=== PATIENT | female | born 1995 | race Caucasian/White ===

== ENCOUNTER 2017-06-10 14:20 | Emergency (ER) | payer OTHER ==
[~2017-06-10] VITALS: Wt 76.0 kg
[2017-06-10] MEDS ORDERED: ACETAMINOPHEN 325 MG TAB PO STA (14:54)
[2017-06-10 15:05] LABS: URINE BLOOD (Dip) POC 3+ (NEGATIVE)
[2017-06-10 15:23] LABS: BASOPHILS % 0.4 % (0.0-2.0); EOSINOPHILS # 0.2 10^3/ul (0.0-0.5); EOSINOPHILS % 1.6 % (0.0-7.0); HEMATOCRIT 41.2 % (37.0-47.0); HEMOGLOBIN 13.6 g/dl (12.0-16.0); LYMPHOCYTES # 2.6 10^3/ul (0.8-2.9); LYMPHOCYTES % 27.8 % (18.0-55.0); MEAN CORPUSCULAR HEMOGLOBIN 30.6 pg (29.0-33.0); MEAN CORPUSCULAR VOLUME 92.6 fl (72.0-104.0); MEAN PLATELET VOLUME 10.2 fl (7.4-10.4); MONOCYTE # 0.6 10^3/ul (0.3-0.9); MONOCYTES % 6.2 % (0.0-13.0); NEUTROPHILS % 63.8 % (30.0-74.0); PLATELET COUNT 209 10^3/UL (140-415); RED BLOOD COUNT 4.45 10^6/ul (4.20-5.40); RED CELL DISTRIBUTION WIDTH 12.4 % (11.5-14.5); WHITE BLOOD COUNT 9.4 10^3/ul (4.8-10.8)
--- NOTE | 2017-06-10 15:51 | RADRPT ---
PROCEDURE: US Obstetric less than 14 weeks. CLINICAL INDICATION: , vaginal bleeding TECHNIQUE: Transabdominal and transvaginal imaging of the pelvis was performed. Images are review ed on a high-resolution PACS workstation. COMPARISON: None available FINDINGS: Irregularly shaped intrauterine gestational sac is identified in the lower uterine segment. Mean sac diameter is 19.2 mm, corresponding to 6 weeks 5 days gestational age. No pole or cardiac activity is identified. Subchorionic hemorrhage is noted, measuring 22 x 14 mm. Nonspecific trace amount of pelvic free fluid is present. Left ovary demonstrates a 16 mm dominant follicle. Right ovary is unremarkable. IMPRESSION: 1. Irregularly shaped intrauterine gestational sac is identified in the lower uterine segment. No f etal pole or cardiac activity is identified. Findings are concerning for failed early and in progress. Continued sonographic follow-up is recommended. 2. Mild subchorionic hemorrhage is noted. 3. Left ovary demonstrates a 16 mm dominant follicle. 4. No evidence of ectopic gestation is seen. RPTAT: AAQQ .Delfin Palmer MD, Date Time Electronically viewed and signed by .Delfin Palmer MD, on 06/10/2017 15:51 .R/
[2017-06-10] MEDS ORDERED: NITR-58 PO (16:03)
--- NOTE | 2017-06-10 16:11 | ERD ---
ER Documentation Chief Complaint Date/Time DATE: 06/10/17 TIME: 16:07 Chief Complaint vag bleeding, pt 4 months pg, , denies pain HPI This is a 21-year-old female presenting to emerge department for vaginal bleeding while . Patient states her last menstrual period was March and patient believes she is about 4 weeks . She is a A0. States she is having pelvic cramping. Unable to rate pain. Patient states she took a urine test at home which was positive and went to [facility] 4 days ago and lab work and ultrasound was done. Patient states ultrasound was inconclusive according to her doctor. Patient states she is having moderate bleeding and states "it is like my period." Patient states she is having multiple moderate sized blood clots. No passage of tissue. No dysuria or hematuria. No fevers or chills. No nausea or vomiting. ROS All systems reviewed and are negative except as per history of present illness. Medications Home Meds Active Scripts Nitrofurantoin Monohyd Macrocr (Macrobid) 100 Mg Capsr, 100 MG PO BID, #10 CAP Prov:VANDANA MACHADO NP 06/10/17 Allergies Allergies: Coded Allergies: No Known Allergy (Unverified , 06/10/17) PMhx/Soc Medical and Surgical Hx: pt denies Medical Hx, pt denies Surgical Hx Hx Alcohol Use: No Hx Substance Use: No Hx Tobacco Use: No Smoking Status: Never smoker Physical Exam Vitals Vital Signs Date Time Temp Pulse Resp B/P Pulse Ox O2 Delivery O2 Flow Rate FiO2 06/10/17 14:23 98.5 67 17 118/59 98 Physical Exam Const: No acute distress, alert Head: Atraumatic Eyes: Normal Conjunctiva ENT: Normal External Ears, Nose and Mouth. Neck: Full range of motion..~ No meningismus. Resp: Clear to auscultation bilaterally Cardio: Regular rate and rhythm, no murmurs Abd: Soft, non tender, non distended. Normal bowel sounds Skin: No petechiae or rashes Back: No midline or flank tenderness Ext: No cyanosis, or edema Neur: Awake and alert Psych: Normal Mood and Affect Result Diagram: 06/10/17 1505 Results 24 hrs Laboratory Tests Test 06/10/17 15:04 06/10/17 15:05 Bedside Urine pH (LAB) 5.0 Bedside Urine Protein (LAB) 2+ Bedside Urine Glucose (UA) Negative Bedside Urine Ketones (LAB) Negative Bedside Urine Blood 3+ Bedside Urine Nitrite (LAB) Negative Bedside Urine Leukocyte Esterase (L 1+ White Blood Count 9.410^3/ul Red Blood Count 4.4510^6/ul Hemoglobin 13.6g/dl Hematocrit 41.2% Mean Corpuscular Volume 92.6fl Mean Corpuscular Hemoglobin 30.6pg Mean Corpuscular Hemoglobin Concent 33.0g/dl Red Cell Distribution Width 12.4% Platelet Count 23758^3/UL Mean Platelet Volume 10.2fl Neutrophils % 63.8% Lymphocytes % 27.8% Monocytes % 6.2% Eosinophils % 1.6% Basophils % 0.4% Nucleated Red Blood Cells % 0.0/100WBC Neutrophils # 6.010^3/ul Lymphocytes # 2.610^3/ul Monocytes # 0.610^3/ul Eosinophils # 0.210^3/ul Basophils # 0.010^3/ul Nucleated Red Blood Cells # 0.010^3/ul Beta HCG, Quantitative 5191.8mIU/ml Current Medications Medications (Trade) Dose Ordered Sig/Pili Route PRN Reason Start Time Stop Time Status Last Admin Dose Admin Acetaminophen (Tylenol Tab) 650 mg ONCE STAT PO 06/10/17 14:54 06/10/17 14:55 DC 06/10/17 15:06 Procedures/MDM [place] [address] Radiology Main Line: [phone] DIAGNOSTIC IMAGING REPORT Patient: YEVGENIY TEJADA : 1995 Age: 21 Sex: F MR #: [id number] DOS: 06/10/17 1454 Ordering MD: VANDANA CARBONE NP Location: FTE Room/Bed: PROCEDURE: US Obstetric less than 14 weeks. CLINICAL INDICATION: , vaginal bleeding TECHNIQUE: Transabdominal and transvaginal imaging of the pelvis was performed. Images are reviewed on a high-resolution PACS workstation. COMPARISON: None available FINDINGS: Irregularly shaped intrauterine gestational sac is identified in the lower uterine segment. Mean sac diameter is 19.2 mm, corresponding to 6 weeks 5 days gestational age. No pole or cardiac activity is identified. Subchorionic hemorrhage is noted, measuring 22 x 14 mm. Nonspecific trace amount of pelvic free fluid is present. Left ovary demonstrates a 16 mm dominant follicle. Right ovary is unremarkable. IMPRESSION: 1. Irregularly shaped intrauterine gestational sac is identified in the lower uterine segment. No pole or cardiac activity is identified. Findings are concerning for failed early and in progress. Continued sonographic follow-up is recommended. 2. Mild subchorionic hemorrhage is noted. 3. Left ovary demonstrates a 16 mm dominant follicle. 4. No evidence of ectopic gestation is seen. MDM: This is a 21-year-old female presenting to the emergency department for vaginal bleeding while starting today. Patient's vitals are stable. Is afebrile and in no acute distress. CBC shows no significant anemia or infection. Beta Hcg is 5191.8. Type and Rh factor is A positive. Urine dip shows 1+ leukocyte Estrace and 3+ blood. OB ultrasound reviewed by radiologist as irregularly shaped intrauterine gestational sac is identified in the lower uterine segment. No pole or cardiac activity is identified. Findings are concerning for failed early and in progress. Continued sonographic follow-up is recommended. Mild subchorionic hemorrhage is noted. Left ovary demonstrates a 16 mm dominant follicle. No evidence of ectopic gestation is seen. Differential diagnosis includes but not limited to ectopic , threatened , missed , normal , subchorionic hemorrhage , ruptured ovarian cyst, UTI or pyelonephritis. Patient's diagnosis is likely threatened and UTI. Instructed patient to return in 2 days for repeat lab work and ultrasound. Patient is appropriate for outpatient management. Patient will be given prescription for Macrobid. Instructed patient to follow-up here in the ED in 2 days. Return to ED sooner for any high fever, chest pain, difficulty breathing , shortness breath, wheezing, vomiting, diarrhea, abdominal pain or any new or worsening symptoms. Patient verbalizes understanding. All questions answered at discharge. Disclaimer: Inadvertent spelling and grammatical errors are likely due to EHR/ dictation software use and do not reflect on the overall quality of patient care. Also, please note that the electronic time recorded on this note does not necessarily reflect the actual time of the patient encounter. Departure Diagnosis: Primary Impression: Vaginal bleeding in patient at less than 20 weeks ges... Additional Impression: UTI (urinary tract infection) Urinary tract infection type: acute cystitis Hematuria presence: with hematuria Qualified Code: N30.01 - Acute cystitis with hematuria Condition: Stable Patient Instructions: Understanding Urinary Tract Infections (UTIs), Bleeding During Early Referrals: [facility] YOU HAVE RECEIVED A MEDICAL SCREENING EXAM AND THE RESULTS INDICATE THAT YOU DO NOT HAVE A CONDITION THAT REQUIRES URGENT TREATMENT IN THE EMERGENCY DEPARTMENT. FURTHER EVALUATION AND TREATMENT OF YOUR CONDITION CAN WAIT UNTIL YOU ARE SEEN IN YOUR DOCTORS OFFICE WITHIN THE NEXT 1-2 DAYS. IT IS YOUR RESPONSIBILITY TO MAKE AN APPOINTMENT FOR FOLOW-UP CARE. IF YOU HAVE A PRIMARY DOCTOR --you should call your primary doctor and schedule an appointment IF YOU DO NOT HAVE A PRIMARY DOCTOR YOU CAN CALL OUR PHYSICIAN REFERRAL HOTLINE AT IF YOU CAN NOT AFFORD TO SEE A PHYSICIAN YOU CAN CHOSE FROM THE FOLLOWING [facility] [address] [facility] [address] [facility] [facility] [address] [facility] [address] [facility] [address] [facility]. [address] [facility] YOU HAVE RECEIVED A MEDICAL SCREENING EXAM AND THE RESULTS INDICATE THAT YOU DO NOT HAVE A CONDITION THAT REQUIRES URGENT TREATMENT IN THE EMERGENCY DEPARTMENT. FURTHER EVALUATION AND TREATMENT OF YOUR CONDITION CAN WAIT UNTIL YOU ARE SEEN IN YOUR DOCTORS OFFICE WITHIN THE NEXT 1-2 DAYS. IT IS YOUR RESPONSIBILITY TO MAKE AN APPOINTMENT FOR FOLOW-UP CARE. IF YOU HAVE A PRIMARY DOCTOR --you should call your primary doctor and schedule and appointment IF YOU DO NOT HAVE A PRIMARY DOCTOR YOU CAN CALL OUR PHYSICIAN REFERRAL HOTLINE AT . IF YOU CAN NOT AFFORD TO SEE A PHYSICIAN YOU CAN CHOSE FROM THE FOLLOWING [facility]: [facility] [address] [place] [address] [facility] [address] [place] [address] [facility] [address] [place] [address] Additional Instructions: Return to ER in 2 days for ultrasound and lab work recheck. Call your primary care doctor TOMORROW for an appointment during the next 2-3 days.See the doctor sooner or return here if your condition worsens before your appointment time. Return to ED for any high fever, chest pain, difficulty breathing, shortness breath, wheezing, vomiting, diarrhea, abdominal pain or any new or worsening symptoms. VANDANA MACHADO NP Jun 10, 2017 16:11
== END 2017-06-10 16:35 | disposition home or self-care (01) ==
LOC: FTE 14:20
DX: O20.9 Hemorrhage in early pregnancy, unspecified (principal); O23.12 Infections of bladder in pregnancy, second trimester; R10.2 Pelvic and perineal pain; Z3A.00 Weeks of gestation of pregnancy not specified
CPT/HCPCS: 36415; 76801; 76817; 81003; 84702; 85025; 86900; 86901; Z7502; Z7610

== ENCOUNTER 2017-06-13 21:08 | Day surgery (SDC) | payer OTHER ==
[~2017-06-13] VITALS: Ht 162.6 cm; Wt 75.0 kg
[~2017-06-13 21:08] MED LIST: NITR-58 PO
--- NOTE | 2017-06-13 22:58 | ERD ---
ER Documentation Chief Complaint Chief Complaint The patient is a 21-year-old female, presenting to the ER because he has vaginal spotting for the last 2 days, worse around 8 PM. She was seen in the ER 2 days ago and had a ultrasound that showed irregularly shaped intrauterine gestational sac is identified in the lower uterine segment, no pole or cardiac activity is identified; bhcg was 5,192. . She denies fever, chills, syncope, near syncope, neck pain, chest pain, dyspnea, complains of minimal suprapubic abdominal pain, denied dysuria, complains of constipation. She is 2 para 1, does not smoke nor drink Past medical history: None Past surgical history: Cholecystectomy ROS All systems reviewed and are negative except as per history of present illness. Medications Home Meds Discontinued Scripts Nitrofurantoin Monohyd Macrocr (Macrobid) 100 Mg Capsr, 100 MG PO BID, #10 CAP Prov:VANDANA MACHADO Sebastian CHARCOAL KILN BURNER 06/10/17 Allergies Allergies: Coded Allergies: No Known Allergy (Unverified , 06/14/17) PMhx/Soc Hx Alcohol Use: No Hx Substance Use: No Hx Tobacco Use: No Physical Exam Vitals Vital Signs Date Time Temp Pulse Resp B/P Pulse Ox O2 Delivery O2 Flow Rate FiO2 06/14/17 01:59 98.4 68 16 93/57 99 Room Air 06/14/17 01:00 67 16 105/60 99 Room Air 06/13/17 23:00 97.8 88 20 114/80 97 Physical Exam Const: No acute distress. Head: Atraumatic. Eyes: Normal Conjunctiva. ENT: Normal External Ears, Nose and Mouth. Neck: Full range of motion. No meningismus. Resp: Clear to auscultation bilaterally. Cardio: Regular rate and rhythm. Abd: Soft, non distended, normal bowel sounds, Mild suprapubic tenderness, no rigidity, rebound, CVA tenderness Skin: No petechiae or rashes. Back: No midline or flank tenderness. Ext: No cyanosis, or edema. Neur: Awake and alert. No focal deficit Psych: Normal Mood and Affect. Result Diagram: 06/13/17 2240 Results 24 hrs Laboratory Tests Test 06/13/17 22:40 White Blood Count 8.810^3/ul Red Blood Count 3.5410^6/ul Hemoglobin 11.4g/dl Hematocrit 33.8% Mean Corpuscular Volume 95.5fl Mean Corpuscular Hemoglobin 32.2pg Mean Corpuscular Hemoglobin Concent 33.7g/dl Red Cell Distribution Width 12.0% Platelet Count 82148^3/UL Mean Platelet Volume 10.9fl Neutrophils % 59.9% Lymphocytes % 31.2% Monocytes % 6.9% Eosinophils % 1.6% Basophils % 0.3% Nucleated Red Blood Cells % 0.0/100WBC Neutrophils # 5.210^3/ul Lymphocytes # 2.710^3/ul Monocytes # 0.610^3/ul Eosinophils # 0.110^3/ul Basophils # 0.010^3/ul Nucleated Red Blood Cells # 0.010^3/ul Beta HCG, Quantitative 1753.7mIU/ml Procedures/[place] [address] Radiology Main Line: [phone] DIAGNOSTIC IMAGING REPORT Patient: YEVGENIY TEJADA : 1995 Age: 21 Sex: F [id number] [id number] DOS: 06/14/17 0004 Ordering MD: ANALISA GRISSOM MD Location: E/R Room/Bed: PROCEDURE: ULTRASOUND OBSTETRICAL CLINICAL INDICATION: 21-year-old female with vaginal bleeding. TECHNIQUE: Multiple sonographic images of the pelvis were obtained. The images were reviewed on a PACS workstation. COMPARISON: None. FINDINGS: There is a single intrauterine gestation. The mean sac diameter is 1.68 cm. The gestational sac has an elongated appearance. There is a small subchorionic hemorrhage present measuring approximately 11 x 6 mm. There is a pole present with a crown-rump length of 1.19 cm. This yields an estimated gestational age of 7 weeks and 0 days. The estimated date of delivery is January. There is no evidence for cardiac activity. There is no evidence for free fluid. The right ovary has a normal echotexture and measures 3.5 x 2.4 x 1.7 cm. The left ovary has a normal echotexture and measures 3.9 x 2.7 x 2.2 cm. There is a hemorrhagic left ovarian cyst measuring 2.3 x 2.1 cm. There is normal flow to the ovaries bilaterally. No adnexal masses are noted. IMPRESSION: 1. Single intrauterine gestation of approximately 7 weeks 0 days with small subchorionic hemorrhage and without cardiac activity probable with early failed . 2. Left ovarian hemorrhagic cyst. .Peter Sneed MD, Date Time Electronically viewed and signed by .Peter Sneed MD, MD on 06/14/2017 01:17 .M/ CC: ANALISA GRISSOM MD MEDICAL MAKING DECISION: The patient is a 21-year-old female, presenting with acute spontaneous with acute anemia. Her hemoglobin dropped from 13.6 2 days ago to 11.4 today. She passed lots of tissue and blood clots in the ER. We cannot exclude incomplete The differential diagnoses considered include but are not limited to threatened/ incomplete/inevitable/complete , ectopic , non- related bleeding. Consultation: I discussed the patient with the on-call dope worker Dr. Gutierres at 2 :40 PM, she was made aware of the lab, the treatment, the patient condition. She accepted the patient for D&C Departure Diagnosis: Primary Impression: Vaginal bleeding in patient at less than 20 weeks gestation Additional Impression: Anemia ANALISA GRISSOM MD Jun 13, 2017 22:57
[2017-06-13 23:00] VITALS: Ht 162.6 cm; Wt 75.0 kg
[2017-06-14] VITALS (22 sets, daily range): BP systolic 96–117; BP diastolic 46–60; PULSE 64–86; RESP 16–19; TEMP 98.2
[2017-06-14 00:56] LABS: BASOPHILS % 0.3 % (0.0-2.0); EOSINOPHILS # 0.1 10^3/ul (0.0-0.5); EOSINOPHILS % 1.6 % (0.0-7.0); HEMATOCRIT 33.8 % (37.0-47.0); HEMOGLOBIN 11.4 g/dl (12.0-16.0); LYMPHOCYTES # 2.7 10^3/ul (0.8-2.9); LYMPHOCYTES % 31.2 % (18.0-55.0); MEAN CORPUSCULAR HEMOGLOBIN 32.2 pg (29.0-33.0); MEAN CORPUSCULAR HGB CONC 33.7 g/dl (32.0-37.0); MEAN CORPUSCULAR VOLUME 95.5 fl (72.0-104.0); MEAN PLATELET VOLUME 10.9 fl (7.4-10.4); MONOCYTE # 0.6 10^3/ul (0.3-0.9); MONOCYTES % 6.9 % (0.0-13.0); NEUTROPHIL # 5.2 10^3/ul (1.6-7.5); NEUTROPHILS % 59.9 % (30.0-74.0); PLATELET COUNT 188 10^3/UL (140-415); RED BLOOD COUNT 3.54 10^6/ul (4.20-5.40); WHITE BLOOD COUNT 8.8 10^3/ul (4.8-10.8)
--- NOTE | 2017-06-14 01:17 | RADRPT ---
PROCEDURE: ULTRASOUND OBSTETRICAL CLINICAL INDICATION: 21-year-old female with vaginal bleeding. TECHNIQUE: Multiple sonographic images of the pelvis were obtained. The images were reviewed on a PACS workstation. COMPARISON: None. FINDINGS: There is a single intrauterine gestation. The mean sac diameter is 1.68 cm. The gestational sac has an elongated appearance. There is a small subchorionic hemorrhage present measuring approximately 1 1 x 6 mm. There is a pole present with a crown-rump length of 1.19 cm. This yields an estimate d gestational age of 7 weeks and 0 days. The estimated date of delivery is January 31, 2018. There is no evidence for cardiac activity. There is no evidence for free fluid. The right ovary has a normal e chotexture and measures 3.5 x 2.4 x 1.7 cm. The left ovary has a normal echotexture and measures 3.9 x 2.7 x 2.2 cm. There is a hemorrhagic left ovarian cyst measuring 2.3 x 2.1 cm. There is normal fl ow to the ovaries bilaterally. No adnexal masses are noted. IMPRESSION: 1. Single intrauterine gestation of approximately 7 weeks 0 days with small subchorionic hemorrhage and without cardiac activity probable with early failed . 2. Left ovarian hemorrhagic cyst. .Peter Sneed MD, Date Time Electronically viewed and signed by .Peter Sneed MD, MD on 06/14/2017 01:17 .Maggie/
--- NOTE | 2017-06-14 05:27 | CONS ---
Date/Time of Note Date/Time of Note DATE: 06/14/17 TIME: 05:20 Assessment/Plan Assessment/Plan Additional Assessment/Plan demise vaginal bleeding PLAN suction curettage Consultation Date/Type/Reason Admit Date/Time Date of Consultation: Jun 14, 2017 Type of Consultation: OB &STUDIO RECEPTIONIST Reason for Consultation vaginal bleeding with demise Referring Provider: ANALISA GRISSOM MD Hx of Present Illness 21 y.o c/o vaginal bleeding for 2days which got worsen last night , presented ER U/s revealed gestational sac 7w without cardiac activities with subchorionic hemorrhage, prepare for suction curettage all neg except lower abdominal cramping pain and vaginal bleeding Constitutional: no complaints Eyes: no complaints ENT: no complaints Respiratory: no complaints Cardiovascular: no complaints Gastrointestinal: no complaints Genitourinary: bleeding, other (pelvic cramping pain) Musculoskeletal: no complaints Skin: no complaints Neurologic: no complaints Endocrine: no complaints Lymphatic: no complaints Past Medical History Medical History: no pertinent history Past Surgical History Past Surgical Hx: cholecystectomy Family History Significant Family History: no pertinent family hx Social History Alcohol Use: none Smoking Status: Never smoker Drug Use: none Exam/Review of Systems Vital Signs Vitals Vital Signs Date Time Temp Pulse Resp B/P Pulse Ox O2 Delivery O2 Flow Rate FiO2 06/14/17 04:30 73 16 102/55 99 Room Air 06/14/17 01:59 98.4 Exam Constitutional: alert, oriented, well developed Psych: nl mood/affect, no complaints Head: atraumatic, normocephalic Eyes: EOMI, PERRL, nl conjunctiva, nl lids, nl sclera ENMT: nl external ears & nose, nl lips & teeth, nl nasal mucosa & septum Neck: non-tender, supple Respiratory: clear to auscultation, normal air movement Cardiovascular: nl pulses, regular rate and rhythm Gastrointestinal: nl liver, spleen, non-tender, soft Musculoskeletal: nl extremities to inspection, nl gait and stance Extremities: normal pulses Neurological: COUNTER WAITRESS/WAITER II-XII intact, nl mental status, nl speech, nl strength Skin: nl turgor, No rash or lesions Lymph: nl lymph nodes Results Result Diagram: 06/13/17 2240 Results 24 hrs Laboratory Tests Test 06/13/17 22:40 White Blood Count 8.8 Red Blood Count 3.54 #L Hemoglobin 11.4 L Hematocrit 33.8 L Mean Corpuscular Volume 95.5 Mean Corpuscular Hemoglobin 32.2 Mean Corpuscular Hemoglobin Concent 33.7 Red Cell Distribution Width 12.0 Platelet Count 188 Mean Platelet Volume 10.9 H Neutrophils % 59.9 Lymphocytes % 31.2 Monocytes % 6.9 Eosinophils % 1.6 Basophils % 0.3 Nucleated Red Blood Cells % 0.0 Neutrophils # 5.2 Lymphocytes # 2.7 Monocytes # 0.6 Eosinophils # 0.1 Basophils # 0.0 Nucleated Red Blood Cells # 0.0 Beta HCG, Quantitative 1753.7 KRISTINE CHAVEZ MD Jun 14, 2017 05:27
[2017-06-14] MEDS ORDERED: PROPOFOL 20 ML ONE (06:17)
[2017-06-14] MEDS ORDERED: KETOROLAC 30 MG INJ ONE (06:17)
[2017-06-14] MEDS ORDERED: FENTAnyl 50 MCG/ML VIAL ONE (06:27)
[2017-06-14] MEDS ORDERED: MEPERIDINE 25 MG INJ IV PRN (06:30)
[2017-06-14] MEDS ORDERED: HYDROmorphONE (0.2 MG/ML) 10ML SYG IV PRN ×3 (06:30)
[2017-06-14] MEDS ORDERED: DIPHENHYDRAMINE 50 MG INJ IV PRN (06:30)
[2017-06-14] MEDS ORDERED: ONDANSETRON 4 MG INJ IV PRN (06:30)
[2017-06-14] MEDS ORDERED: EPHEDrine SULFATE 50 MG/5 ML SYG ONE (06:45)
[2017-06-14] MEDS ORDERED: METOCLOPRAMIDE 10 MG INJ ONE (06:45)
[2017-06-14] MEDS ORDERED: OXYTOCIN 10 UNIT INJ ONE (06:51)
--- NOTE | 2017-06-14 07:44 | PD.PPDC ---
AUTOMATION OPERATOR Discharge Instruction Diagnosis Final Diagnosis: demise at 7w Condition Patient Condition: Stable Diet Diet: Resume Regular Diet Activity/Restrictions Activity: May Shower Restrictions: No Sexual Activity Nothing in the Vagina No [place] No Tampons, douche Follow-up Follow-up with Physician: 2, Week/Weeks Provider Information: call for appoinment [phone] for post op ck Return to clinic for TICKETER Instructions: Fever greater than 101 Chills Worsening abdominal pain Excessive Vaginal Bleeding More than 2 pads per hour Unable to tolerate diet KRISTINE CHAVEZ MD Jun 14, 2017 07:44
--- NOTE | 2017-06-14 07:47 | SIPON ---
Date/Time of Note Date/Time of Note DATE: 06/14/17 TIME: 07:46 Operative Report Preoperative Diagnosis demise 7w Postoperative Diagnosis same see pathologic report Operation/Procedure Performed suction curettage Surgeon see signature line conservation assistant joselin mt Anesthesia: general Estimated blood loss: 50 - 100 ml's Transfusion Required none Specimen POC Grafts/Implants none Complications none KRISTINE CHAVEZ MD Jun 14, 2017 07:47
--- NOTE | 2017-06-14 10:42 | OPR ---
DATE OF OPERATION: 06/14/2017 PREOPERATIVE DIAGNOSIS: A 7-week demise. POSTOPERATIVE DIAGNOSIS: See pathological report. A 7-week demise. OPERATION PERFORMED: Suction curettage. ANESTHESIA: General. ANESTHESIOLOGIST: Dr. Reyes. SURGEON: Toshia Gutierres MD ESTIMATED BLOOD LOSS: Approximately 50 mL DESCRIPTION PROCEDURE: Under appropriate induction of the general anesthesia, the patient was place d in dorsal lithotomy position. Perineal area and vagina wall was prepped and draped in usual asept ic manner. Bimanual examination revealed uterus felt to be approximately 10 weeks of gestational si ze, soft, freely mobile. There was no palpable adnexal pathology. Weighted speculum introduced, ce rvix identified which was clear and this cavity was sounded, which was 10 cm in depth. Os was alrea dy open to size 10 Hegar dilator and size 9 suction curet was inserted into the uterine cavity. Cav ity was suctioned in all directions with obtaining of product of conception tissue, followed by the sharp curet in all directions with obtaining additional small amount of tissue and suctioned again a nd finally, the cavity was checked and then 10 units of Pitocin was given through the IV infusion. After the suction done the instruments were removed from the operative field and I reexamined the ut erus which was firming up and no significant bleeding noted. Procedure completed and sponge count c orrect. The patient was sent to the recovery room in stable condition. Dictated By: TOSHIA DOBSON/KELLI Conf#: [id number] DID#: [id number]
== END 2017-06-14 09:30 | disposition home or self-care (01) ==
LOC: E/R 21:08 → SDS 06-14 06:07
PROVIDERS: ATTEND Obstetrics & Gynecology
DX: O02.1 Missed abortion (principal); Z3A.01 Less than 8 weeks gestation of pregnancy
CPT/HCPCS: 59820; 76801; 76817; 84702; 85025; 86900; 86901; 88305; J1885; J2590; J2765; J3010; Z7502; Z7512; Z7610

== ENCOUNTER 2018-01-02 19:50 | Emergency (ER) | END 2018-01-02 23:54 | disposition home or self-care (01) ==

== ENCOUNTER 2018-07-13 19:41 | Outpatient (CLI) | END 2018-07-13 21:05 | disposition home or self-care (01) ==

== ENCOUNTER 2018-07-16 17:34 | Inpatient (IN) | END 2018-07-19 15:18 | disposition home or self-care (01) | DRG 807 ==